=== PATIENT | male | born 1945 | race Caucasian/White ===

== ENCOUNTER → 2019-09-06 | Outpatient (CLI) | payer OTHER, BC | LOC: SJCVCIMAG 08:51 | DX: I70.1 Atherosclerosis of renal artery (principal); I25.10 Atherosclerotic heart disease of native coronary artery without angina pectoris; E11.51 Type 2 diabetes mellitus with diabetic peripheral angiopathy without gangrene; I10 Essential (primary) hypertension; I65.23 Occlusion and stenosis of bilateral carotid arteries; R60.9 Edema, unspecified; E78.00 Pure hypercholesterolemia, unspecified ==

== ENCOUNTER → 2019-09-16 | Outpatient (CLI) | payer OTHER, BC ==
[~2019-09-16] VITALS: Ht 175.3 cm; Wt 115.7 kg
[~2019-09-16] MED LIST: ASA81BEC PO; BIMATOPROST2.5 ML LT. EYE; BYSTOLIC10 MG PO; LORCET 5-325 M1 EACH PO; NITROSTAT0.4 M1; PLAVIX 75 MG TA75 MG PO; SUPER THERAVIT1 EACH PO; VICTOZA0.6 MG/0.1 SUBQ; ZETIA10 MG PO
[2019-09-16 07:25] VITALS: BP 144/76
[2019-09-16 07:27] LABS: HEMATOCRIT 38.5 % (42.0-52.0); HEMOGLOBIN 12.6 gm/dL (14.0-18.0); MCH 27.7 pg (26.0-34.0); MCHC 32.7 g/dL (28.0-37.0); MCV 84.6 fL (80.0-100.0); RBC 4.56 mil/uL (4.50-6.00); RDW 18.7 % (10.5-14.5)
[2019-09-16 07:41] LABS: CALCIUM 8.7 mg/dL (8.5-10.1); CREATININE 1.1 mg/dL (0.7-1.3); POTASSIUM 3.7 mmol/L (3.5-5.1)
--- NOTE | 2019-09-17 17:33 | CATHLAB ---
[facility] [place] [address] INVASIVE PROCEDURE REPORT Name: MIAH MARTIN Room #: REG YAW MadelinDoc.#: [id number] Admission: 09/16/19 Attend Phys: Javy Duran MD Discharge: Date of : 43 Report #: [id number] THIS REPORT FOR: cc: Víctor Marshall Steve T. DO Mancuso, Gerald M. MD [facility] ~ APPROVED REPORT Study performed: 09/16/2019 09:19:01 Patient Details Patient Status: Out-Patient Room #: The patient is a 73 year-old male Event Personnel Juevncio Hartman Galley Hand, Genny Mcrae RN RN, Jacqueline Sy RTR, Dg Orona Roberta Monitor Procedures Performed Left Heart Cath w/or w/o Coronaries [id number] [facility] Hemostasis w/ Mynx 15810 Initial Mod Sed Same Phys/QHP Gr5y 345127 67904 Mod Sed Same Phys/QHP Ea [id number] Indication Chest pain Procedure Narrative The RFG^ was infiltrated with 2% Lidocaine subcutaneous anesthesia. A 6F Brite Tip Sheath sheath was inserted into the RFA^. Coronary angiography was performed using coronary diagnostic catheters. The right coronary system was accessed and visualized with a jr4 catheter. The left coronary system was accessed and visualized with a jl5 catheter. The left ventricle was accessed and visualized with a str pig catheter. Left ventriculogram was performed in 30 degree projection. The patient tolerated the procedure well and there were no complications associated with the procedure. There was no hematoma. This was a combo case with L/C and Renal Angio. Intraoperative Conscious Sedation Sedation start time: 817 Case end Time: 914 Fentanyl 50 mcg Versed mg [facility] [address] [place] [address] INVASIVE PROCEDURE REPORT Name: MIAH MARTIN Room #: REG [facility].#: [id number] Admission: 09/16/19 Attend Phys: Javy Duran, Discharge: Date of : 43 Report #: [id number] Fluoro Time: 13.00 minutes Dose: DAP 73234.90 cGycm2 2417 mGy Contrast Type and Amount: Visipaque 39 ml Hemodynamics The aortic pressure is 161/73 mmHg with a mean of 100 mmHg. The left ventricular pressure is 187/8 mmHg with a mean of mmHg. The left ventricular end diastolic pressure is 25 mmHg. PCI Technique Lesion Percutaneous coronary intervention was performed on the Left Renal. Conclusion 1. Normal left ventricular size and systolic function EF 60% #2 left main mildly calcified distal disease giving rise to LAD and circumflex. #3 LAD eccentric 70 to 80% lesion with a well-preserved distal vessel which wraps the apex. #4 a high-grade subtotal diagonal off of this diseased area of the proximal left main complex with moderate distribution. #5 circumflex OM is codominant there is complex first OM high-grade disease with a second OM also high-grade disease and then mid circumflex after this takeoff has an eccentric 70% lesion. This is the predominant dominant vessel. #6 predominately nondominant RCA diffuse distal disease and a minimal and very small PDA not amenable to intervention or bypass. This is supplying little left ventricle. #7 normal left jugular size and systolic function EF 60% Recommendations and plan: Continue aggressive risk factor modification. Would like CT surgical consultation regarding this complex and calcified disease involving the LAD diagonal and proximal circumflex OM system. Chest pain hemodynamically stable Transfer to CV holding for further consultation. <ELECTRONICALLY SIGNED> By: Juvencio Hartman MD, FACC 09/17/19 173 31 31 Juvencio Hartman MD, FACC /INF
== END | disposition home or self-care (01) ==
LOC: CATH 06:37
PROVIDERS: Internal Medicine Cardiovascular Disease
DX: R07.9 Chest pain, unspecified (principal); I25.10 Atherosclerotic heart disease of native coronary artery without angina pectoris; I70.1 Atherosclerosis of renal artery; I73.9 Peripheral vascular disease, unspecified; I15.0 Renovascular hypertension; I70.0 Atherosclerosis of aorta; I10 Essential (primary) hypertension; E11.9 Type 2 diabetes mellitus without complications; E78.00 Pure hypercholesterolemia, unspecified; Z98.890 Other specified postprocedural states; Z90.49 Acquired absence of other specified parts of digestive tract; Z79.899 Other long term (current) drug therapy; Z72.0 Tobacco use

== ENCOUNTER → 2019-09-18 | Outpatient (CLI) | payer OTHER, BC ==
[~2019-09-18] MED LIST changes: +BYSTOLIC 5 MG5 MG PO; +COMBIGAN EYE DR10 ML OPHTHALMIC; +FERREX 150150 MG PO; +HYDROCODON-ACE1 EAC7 PO; +LUMIGAN2.5 M1 OPHTHALMIC; +ROSUVASTATIN CA20 MG PO; +STOOL SOFTENER100 MG PO; +VITAMIN D350 MC1 PO
== END ==
LOC: SJCVCIMAG 07:31
PROVIDERS: ATTEND Internal Medicine Cardiovascular Disease
DX: Z01.818 Encounter for other preprocedural examination (principal); I08.1 Rheumatic disorders of both mitral and tricuspid valves; I25.10 Atherosclerotic heart disease of native coronary artery without angina pectoris; Z95.1 Presence of aortocoronary bypass graft; Z79.899 Other long term (current) drug therapy

== ENCOUNTER → 2019-09-30 | Outpatient (CLI) | payer OTHER, BC | LOC: ULTRA 08:48 | PROVIDERS: ATTEND Surgery Vascular Surgery | DX: Z01.818 Encounter for other preprocedural examination (principal) ==

== ENCOUNTER 2019-10-03 06:39 | Inpatient (IN) | payer OTHER, BC ==
[2019-09-30 10:49] LABS: ABSOLUTE NEUTROPHILS 8.3 thou/uL (1.4-8.2); BASOPHILS 0.6 % (0.0-2.0); EOSINOPHILS 2.6 % (0.0-3.0); HEMATOCRIT 39.6 % (42.0-52.0); HEMOGLOBIN 12.9 gm/dL (14.0-18.0); LYMPHOCYTES 13.9 % (24.0-44.0); MCH 27.4 pg (26.0-34.0); MCHC 32.5 g/dL (28.0-37.0); MCV 84.4 fL (80.0-100.0); MONOCYTES 9.1 % (1.0-8.0); PLATELET COUNT 254 thou/uL (150-400); POLYS 73.8 % (36.0-66.0); RBC 4.69 mil/uL (4.50-6.00); RDW 19.3 % (10.5-14.5); WBC 11.2 thou/uL (4.0-11.0)
[2019-09-30 10:55] LABS: APTT 35.8 Seconds (24.5-32.8); INR 1.1; PROTIME 10.9 Seconds (9.3-11.4)
[2019-09-30 11:02] LABS: ALBUMIN 2.8 g/dL (3.4-5.0); CALCIUM 8.9 mg/dL (8.5-10.1); CREATININE 1.3 mg/dL (0.7-1.3); POTASSIUM 4.2 mmol/L (3.5-5.1); TOTAL BILIRUBIN 0.6 mg/dL (0.2-1.0); TOTAL PROTEIN 6.5 g/dL (6.4-8.2)
[2019-09-30 11:35] LABS: URINE BILIRUBIN NEGATIVE (Negative); URINE BLOOD TRACE (Negative); URINE CLARITY CLEAR; URINE COLOR YELLOW; URINE GLUCOSE-RANDOM* NEGATIVE (Negative); URINE KETONES NEGATIVE (Negative); URINE LEUKOCYTES-REFLEX NEGATIVE (Negative); URINE NITRITE-REFLEX NEGATIVE (Negative); URINE PROTEIN (DIPSTICK) 2+ (Negative); URINE SPECIFIC GRAVITY 1.025 (1.005-1.035); URINE UROBILINOGEN 0.2 E.U./dl (0.2-1.0)
--- NOTE | 2019-09-30 11:46 | EKG ---
[facility] [place] [place] [address] ELECTROCARDIOGRAM REPORT Name: VERONICAMIAH Room #: PRE IN M.R.#: [id number] Admission: Attend Phys: Morris Zamarripa MD Discharge: Date of : 43 Report #: [id number] THIS REPORT FOR: cc: Víctor Marshall Steve T. DO Couchonnal, Luis F. MD ~ THIS REPORT FOR: //name// [facility] Test Date: 2019-09-30 Test Time: 10:33:07 Pat Name: MIAH MARTIN Department: Room: Gender: Ludlow Machine Operator: [facility] : 1945 Requested By: Morris Zamarripa Order Number: [id number] MD: Obinna Tomlinson Measurements Intervals [place] Rate: 78 P: 28 [place]: 175 QRS: -45 QRSD: 129 T: 24 QT: 374 QTc: 426 Interpretive Statements Sinus rhythm RBBB and LAFB Compared to ECG 04/30/2003 15:02:42 Left anterior fascicular block now present Right bundle-branch block now present Electronically Signed On 09-30-2019 11:44:14 CDT by Obinna Tomlinson [email or web address] <ELECTRONICALLY SIGNED> By: Obinna Tomlinson MD 09/30/19 1144 1033 1033 Obinna Tomlinson MD /EPI
[2019-09-30 11:47] LABS: ANISOCYTOSIS 2+; OVALOCYTES FEW
[2019-09-30 11:56] LABS: BACTERIA-REFLEX 1-9 Few /HPF (None Seen); CRYSTALS None Seen /LPF (None Seen); HYALINE CASTS 0-3 Few /LPF (None Seen); SQUAMOUS 0-3 Few /LPF (0-3); URINE RBC 0-2 Rare /HPF (0-2); URINE WBC-REFLEX 0-5 Rare /HPF (0-5)
[2019-10-01 01:08] LABS: GLYCOHEMOGLOBIN (HGB A1C) 7.1 % (4.8-5.6)
[2019-10-03] VITALS (26 sets, daily range): BP systolic 81–164; BP diastolic 46–88
[~2019-10-03] VITALS: Ht 175.3 cm; Wt 115.3 kg
[~2019-10-03 06:39] MED LIST changes: -FERREX 150150 MG PO; -HYDROCODON-ACE1 EAC7 PO
[2019-10-03] MEDS ORDERED: HYDROCODON-ACE1 EAC7 PO (12:17)
[2019-10-03 13:24] LABS: HEMATOCRIT 26.1 % (42.0-52.0); MCH 27.2 pg (26.0-34.0); MCHC 32.2 g/dL (28.0-37.0); MCV 84.5 fL (80.0-100.0); RBC 3.09 mil/uL (4.50-6.00); RDW 18.5 % (10.5-14.5); WBC 17.6 thou/uL (4.0-11.0)
[2019-10-03 13:27] LABS: HEMOGLOBIN 8.4 gm/dL (14.0-18.0)
[2019-10-03 13:45] LABS: APTT 29.1 Seconds (24.5-32.8); FIBRINOGEN 399.1 mg/dL (210-360); PROTIME 13.3 Seconds (9.3-11.4)
[2019-10-03 13:47] LABS: INR 1.3
[2019-10-03 13:57] LABS: POC BE -2 mmol/L (-2.0 to +3.0); POC GLUCOSE 157 mg/dL (70-99); POC HCO3 24.1 mmol/L (22.0-26.0); POC HEMOGLOBIN 9.5 g/dL (14.0-18.0); POC POTASSIUM 4.4 mmol/L (3.5-5.1); POC SODIUM 141 mmol/L (136-145); POC pCO2 46.1 mmHg (35.0-45.0); POC pH 7.326 (7.360-7.450)
[2019-10-03 13:57] LABS: POC BE 0 mmol/L (-2.0 to +3.0); POC CA IONIZED 4.6 mg/dL (4.5-5.3); POC GLUCOSE 212 mg/dL (70-99); POC HCO3 24.1 mmol/L (22.0-26.0); POC HEMOGLOBIN 9.5 g/dL (14.0-18.0); POC POTASSIUM 4.5 mmol/L (3.5-5.1); POC SODIUM 141 mmol/L (136-145); POC pCO2 37.8 mmHg (35.0-45.0); POC pH 7.413 (7.360-7.450)
[2019-10-03 13:57] LABS: POC BE -4 mmol/L (-2.0 to +3.0); POC CA IONIZED 4.7 mg/dL (4.5-5.3); POC GLUCOSE 183 mg/dL (70-99); POC HCO3 21.7 mmol/L (22.0-26.0); POC HEMOGLOBIN 8.8 g/dL (14.0-18.0); POC POTASSIUM 4.7 mmol/L (3.5-5.1); POC SODIUM 140 mmol/L (136-145); POC pCO2 37.7 mmHg (35.0-45.0); POC pH 7.367 (7.360-7.450)
[2019-10-03 13:57] LABS: POC BE 0 mmol/L (-2.0 to +3.0); POC CA IONIZED 5.2 mg/dL (4.5-5.3); POC GLUCOSE 136 mg/dL (70-99); POC HCO3 25.2 mmol/L (22.0-26.0); POC HEMOGLOBIN 11.2 g/dL (14.0-18.0); POC SODIUM 142 mmol/L (136-145); POC pCO2 45.1 mmHg (35.0-45.0); POC pH 7.354 (7.360-7.450)
[2019-10-03 13:58] LABS: POC BE 5 mmol/L (-2.0 to +3.0); POC CA IONIZED 4.7 mg/dL (4.5-5.3); POC GLUCOSE 201 mg/dL (70-99); POC HCO3 30.1 mmol/L (22.0-26.0); POC HEMOGLOBIN 8.8 g/dL (14.0-18.0); POC POTASSIUM 4.4 mmol/L (3.5-5.1); POC SODIUM 142 mmol/L (136-145); POC pCO2 48.5 mmHg (35.0-45.0); POC pH 7.401 (7.360-7.450)
[2019-10-03 13:58] LABS: POC BE -3 mmol/L (-2.0 to +3.0); POC CA IONIZED 4.6 mg/dL (4.5-5.3); POC GLUCOSE 190 mg/dL (70-99); POC HCO3 22.5 mmol/L (22.0-26.0); POC HEMOGLOBIN 8.8 g/dL (14.0-18.0); POC POTASSIUM 4.4 mmol/L (3.5-5.1); POC SODIUM 140 mmol/L (136-145); POC pH 7.368 (7.360-7.450)
[2019-10-03 13:58] LABS: POC BE -3 mmol/L (-2.0 to +3.0); POC CA IONIZED 5.3 mg/dL (4.5-5.3); POC GLUCOSE 129 mg/dL (70-99); POC HCO3 22.5 mmol/L (22.0-26.0); POC HEMOGLOBIN 9.2 g/dL (14.0-18.0); POC POTASSIUM 3.6 mmol/L (3.5-5.1); POC SODIUM 143 mmol/L (136-145); POC pCO2 41.1 mmHg (35.0-45.0); POC pH 7.346 (7.360-7.450)
[2019-10-03 13:58] LABS: POC BE -1 mmol/L (-2.0 to +3.0); POC CA IONIZED 5.5 mg/dL (4.5-5.3); POC GLUCOSE 168 mg/dL (70-99); POC HCO3 23.6 mmol/L (22.0-26.0); POC HEMOGLOBIN 8.8 g/dL (14.0-18.0); POC POTASSIUM 3.9 mmol/L (3.5-5.1); POC SODIUM 141 mmol/L (136-145); POC pCO2 39.2 mmHg (35.0-45.0); POC pH 7.389 (7.360-7.450)
[2019-10-03 13:58] LABS: POC BE -3 mmol/L (-2.0 to +3.0); POC CA IONIZED 4.6 mg/dL (4.5-5.3); POC GLUCOSE 201 mg/dL (70-99); POC HCO3 21.7 mmol/L (22.0-26.0); POC HEMOGLOBIN 8.8 g/dL (14.0-18.0); POC POTASSIUM 4.5 mmol/L (3.5-5.1); POC SODIUM 141 mmol/L (136-145); POC pCO2 33.2 mmHg (35.0-45.0); POC pH 7.423 (7.360-7.450)
[2019-10-03 14:41] LABS: BE(vivo) -4.6 mmol/L (-2 to +3); HCO3 21.9 mmol/L (22.0-26.0); PCO2 46.6 mmHg (35.0-45.0); PO2 73.5 mmHg (80.0-100.0); sO2 93.1 % (92.0-98.0)
[2019-10-03 14:50] LABS: HEMATOCRIT 28.6 % (42.0-52.0); HEMOGLOBIN 9.3 gm/dL (14.0-18.0); MCH 27.4 pg (26.0-34.0); MCHC 32.5 g/dL (28.0-37.0); MCV 84.5 fL (80.0-100.0); RBC 3.38 mil/uL (4.50-6.00); RDW 18.8 % (10.5-14.5); WBC 18.2 thou/uL (4.0-11.0)
[2019-10-03 15:00] LABS: CALCIUM 8.3 mg/dL (8.5-10.1); CREATININE 1.4 mg/dL (0.7-1.3); MAGNESIUM 2.3 mg/dL (1.8-2.4); POTASSIUM 3.7 mmol/L (3.5-5.1)
--- NOTE | 2019-10-03 15:09 | NUR ---
PATIENT ARRIVED TO ICU BED 248 AT 1423 WITH OR STAFF AT BEDSIDE. DR BARRIGA AT BEDSIDE WITHIN 10 MINUTES. CARDENE, PROPOFOL, AND INSULIN DRIP INFUSING. PATIENT HOOKED UP TO ALL MONITORS AND PLACED ON THE VENT. CRITICAL PH 7.29 NOTED AND GIVEN TO JOHNATHAN AND NEW ORDERS RECIEVED. ALL LINES IN PLACE. NO FURTHER CONCERNS AT THIS TIME. WILL CONTINUE TO MONITOR AND CARE PER PLAN OF CARE.
[2019-10-03 15:11] LABS: APTT 29.9 Seconds (24.5-32.8); INR 1.2; PROTIME 12.2 Seconds (9.3-11.4)
--- NOTE | 2019-10-03 15:41 | NUR ---
1540, PATIENT REWARMED. VSS. WILL CONTINUE TO MONITOR
[2019-10-03 15:44] LABS: BE(vivo) -6.1 mmol/L (-2 to +3); HCO3 18.8 mmol/L (22.0-26.0); PCO2 34.6 mmHg (35.0-45.0); PO2 78.8 mmHg (80.0-100.0); pH 7.352 (7.360-7.450); sO2 95.3 % (92.0-98.0)
[2019-10-03 17:55] LABS: HCO3 17.4 mmol/L (22.0-26.0); PCO2 34.8 mmHg (35.0-45.0)
[2019-10-03 17:56] LABS: pH 7.316 (7.360-7.450)
[2019-10-03 23:23] LABS: BE(vivo) -8.6 mmol/L (-2 to +3); HCO3 17.1 mmol/L (22.0-26.0); pH 7.295 (7.360-7.450); sO2 95.4 % (92.0-98.0)
[2019-10-04] VITALS (20 sets, daily range): BP systolic 89–137; BP diastolic 52–82
[2019-10-04 00:07] LABS: BE(vivo) -9.3 mmol/L (-2 to +3); HCO3 17.5 mmol/L (22.0-26.0); PCO2 41.6 mmHg (35.0-45.0); PO2 78.1 mmHg (80.0-100.0); pH 7.242 (7.360-7.450); sO2 93.5 % (92.0-98.0)
[2019-10-04 00:52] LABS: BE(vivo) -8.9 mmol/L (-2 to +3); HCO3 17.1 mmol/L (22.0-26.0); PCO2 37.2 mmHg (35.0-45.0); PO2 67.8 mmHg (80.0-100.0); sO2 91.4 % (92.0-98.0)
--- NOTE | 2019-10-04 04:54 | NUR ---
Pt reports severe pain, that is unrelieved by prn meds, IV fentanyl has been given x 3, with minimal relief, per pt. He remains restless, (with VERY brief periods of rest noted), he moves his right hand/arm constantly so the Art line readings are skewed, the cuff pressures have been stable. Otherwise his hemodynamics are WNL, heart rate/rhythm w/o ectopy and trace pedal edema. Lungs remain coarse/diminished, he has a fair non-productive cough, Face shield at 60% sats 90-93 % Chest tubes are patent, sites are w/o drainage, dressings are intact. Marques catheter is patent, draining clear yellow urine. Pt is on amiodarone, insulin at 6 units/hr since 2300, checking BGL Q2H now. The bed is in the low/locked position, the siderails are up 4, the call light is within reach and pt is slowly progressing to POC goals.
[2019-10-04 05:31] LABS: HEMATOCRIT 30.8 % (42.0-52.0); HEMOGLOBIN 9.7 gm/dL (14.0-18.0); MCH 26.9 pg (26.0-34.0); MCHC 31.5 g/dL (28.0-37.0); MCV 85.4 fL (80.0-100.0); RBC 3.61 mil/uL (4.50-6.00); RDW 19.1 % (10.5-14.5); WBC 17.1 thou/uL (4.0-11.0)
[2019-10-04 07:08] LABS: CALCIUM 8.3 mg/dL (8.5-10.1); CREATININE 1.4 mg/dL (0.7-1.3); MAGNESIUM 2.3 mg/dL (1.8-2.4); POTASSIUM 3.8 mmol/L (3.5-5.1)
--- NOTE | 2019-10-04 08:44 | NUR ---
Nutrition: Pt S/P CABG x 5. Consult received. Will address education needs once out of ICU/closer to D/C.
--- NOTE | 2019-10-04 11:32 | NUR ---
chart review. post cabg pt up working with ot and going to sit up in recliner chair. intro to cp and dcp. he is able to make his needs know. has chest tubes. he reported " lives home alone, independent prior to hospital. has cane. drives vehicle and manage own medication. "amria g. will cont following as needed for dc needs. will cont following as needed for dc needs.
--- NOTE | 2019-10-04 12:11 | NUR ---
PT HYPERTENSIVE THIS AM AT 0700 CARDENE STARTED. FOLLOWING INITIATION OF CARDENE O2 SATS DECREASED. INCREASED O2 TO 85% FACE SHIELD. O2 SATS REMAIN LOW BUT BP IMPROVED ON CARDENE. PT DENIES SOA. DISCUSSED WITH DR BARRIGA. PT STARTED ON PO MEDS AND CARDENE WEANED OFF. O2 SATS IMPROVED FOLLOWING DISCONTINUATION OF CARDENE. KEEPING SBP BELOW [address] BARRIGA. BP STABLE FOLLOWING PO MEDS. SWAN MARIELLA DISCONTINUED ORDERED. UP TO CHAIR WITH STANDBY ASSISTANCE X2. ENCOURAGING USE OF I.S. AND COUGHING AND DEEP BREATHING. SPOKE WITH PT'S DAUGHTER AND UPDATED HER OF PT STATUS AND PT SPOKE WITH HER BY PHONE WELL. TOLERATING LIQUIDS BUT POOR APPETITE. WILL CONTINUE TO MONITOR PATIENT. PROGRESSING TOWARDS GOALS PER PLAN OF CARE.
--- NOTE | 2019-10-04 19:09 | NUR ---
PT UP TO CHAIR FOR 5 HRS TODAY. AMBULATED IN HALLWAY WITH PHYSICAL THERAPY. BACK TO BED THIS AFTERNOON AND MEDISTINAL CT DISCONTINUED. ATTEMPTING TO WEAN O2 BUT O2 SATS LESS THAN 92% WITH ANY DECREASE. ENCOURAGED USE OF I.S. AND COUGHING/DEEP BREATHING. BP ELEVATED THIS AFTERNOON. DISCUSSED WITH DR BARRIGA AND TIO GIVEN ORDERED. SPOKE WITH PT'S DAUGHTER THIS AFTERNOON AND UPDATED HER.
[2019-10-05] VITALS (7 sets, daily range): BP systolic 111–143; BP diastolic 66–75
[2019-10-05 04:58] LABS: BE(vivo) -7.1 mmol/L (-2 to +3); HCO3 17.6 mmol/L (22.0-26.0); PCO2 32.4 mmHg (35.0-45.0); PO2 80.2 mmHg (80.0-100.0); pH 7.354 (7.360-7.450); sO2 95.5 % (92.0-98.0)
[2019-10-05 05:36] LABS: HEMATOCRIT 27.1 % (42.0-52.0); HEMOGLOBIN 8.9 gm/dL (14.0-18.0); MCH 27.9 pg (26.0-34.0); MCHC 32.8 g/dL (28.0-37.0); MCV 85.2 fL (80.0-100.0); RBC 3.18 mil/uL (4.50-6.00); RDW 18.9 % (10.5-14.5); WBC 18.1 thou/uL (4.0-11.0)
[2019-10-05 06:17] LABS: CREATININE 1.6 mg/dL (0.7-1.3); POTASSIUM 4.3 mmol/L (3.5-5.1)
--- NOTE | 2019-10-05 18:08 | NUR ---
ASSESSMENT DOCUMENTED. VSS. AFEBRILE. PAIN MANAGEMENT DURING SHIFT WITH MEDICATIONS. CHEST TUBE OUTPUT 75 DURING SHIFT. LORENZA JOSHI'Nitin. PT VOIDED AFTER VIA URINAL. PT UP TO CHAIR AND WORKED WITH PT/OT. PT RESTING IN BED WITH CALL LIGHT IN REACH. WILL CONTINUE TO MONITOR.
[2019-10-06] VITALS (15 sets, daily range): BP systolic 99–137; BP diastolic 60–71
--- NOTE | 2019-10-06 03:47 | NUR ---
PAIN MANAGEMENT WAS ACHIEVED WITH ORAL MEDICATIONS WITH GOOD RESULTS. POC WITH O2 AND BREATHING TX. OPTI MAX WORKING WELL WITH SATS AT 97%. VSS, NO FEVER AND HR IN 70'S WITH NSR. PT STATES WHEN HE COUGHS HE URINATES, SO HE IS KEEPING A URINAL BETWEEN HIS LEGS. PT WILL BE UP TO THE CHAIR AT APPROX 0500. CALL LIGHT WITHIN REACH.
--- NOTE | 2019-10-06 17:39 | NUR ---
ASSESSMENT CHARTED. PT ALERT AND ORIENTED. VSS. REPORT HAVING STERNUM DISCOMFORT BUT DENIED THE NEED FOR PAIN MED. SR ON TELE. HAD [address] GARCES AWARE. NO NEW ORDERS. INTRODUCER REMOVED. CHEST TUBE AND PACER WIRES REMOVED BY DR. BARRIGA. PT UP IN THE CHAIR MOST OF THIS SHIFT. PARTICIPATED IN PHYSICAL THERAPY. CHECKED FREQUENTLY AND NEEDS MET. CALL LIGHT WITHIN REACH. NO CONCERNS AT THIS TIME. WILL CONTINUE TO MONITOR.
[2019-10-07] VITALS (30 sets, daily range): BP systolic 92–139; BP diastolic 49–68
[2019-10-07 05:42] LABS: HEMATOCRIT 25.8 % (42.0-52.0); HEMOGLOBIN 8.5 gm/dL (14.0-18.0); MCH 27.9 pg (26.0-34.0); MCHC 32.9 g/dL (28.0-37.0); MCV 84.7 fL (80.0-100.0); RBC 3.05 mil/uL (4.50-6.00); RDW 19.2 % (10.5-14.5); WBC 10.3 thou/uL (4.0-11.0)
--- NOTE | 2019-10-07 06:00 | NUR ---
AWAKE AND ALERT. VSS SR NO TUCKER. LUNGS DIMINISHED BILAT. CHEST AND LEG DSG DRY AND INTACT. FABI DRAIN INTACT. VOIDED 1200 CC TONIGHT. SINUS RHYTHM. CONT TO BE VERY DYSPNIC WITH ANY EXERTION. O2 SAT 96 % ON 6 L HF NC. PROGRESSING TOWARD GOALS. WILL CONT TO MONITOR.
[2019-10-07 06:16] LABS: CALCIUM 8.6 mg/dL (8.5-10.1); CREATININE 1.3 mg/dL (0.7-1.3)
--- NOTE | 2019-10-07 07:00 | NUR ---
UP TO CARDIAC CHAIR. LORNE WELL
--- NOTE | 2019-10-07 08:10 | EKG ---
[facility] [place] [address] ELECTROCARDIOGRAM REPORT Name: MIAH MARTIN Room #: 248-P ADM IN M.R.#: [id number] Admission: 10/03/19 Attend Phys: Morris Zamarripa MD Discharge: Date of : 43 Report #: [id number] THIS REPORT FOR: cc: Víctor Marshall Steve T. DO Lundgren, Craig H. MD [facility] ~ THIS REPORT FOR: //name// [facility] Test Date: 2019-10-03 Test Time: 18:06:42 Pat Name: MIAH MARTIN Department: Room: 248 Gender: M Patient Monitor: Kings BARTON : 1945 Requested By: Nikos Castle Order Number: [id number] MD: Ariel Haji Measurements Intervals [place] Rate: 81 P: 39 SD: 157 QRS: -10 QRSD: 125 T: 1 QT: 400 QTc: 465 Interpretive Statements Sinus rhythm Right bundle branch block Compared to ECG 09/30/2019 10:33:07 [place] has shifted rightward Electronically Signed On 10-07-2019 8:08:48 CDT by Ariel Haji [email or web address] <ELECTRONICALLY SIGNED> By: Ariel Haji MD, [facility] 10/07/19 0808 180 180 Ariel Haji MD, [facility] /EPI
--- NOTE | 2019-10-07 08:17 | EKG ---
[facility] [place] [address] ELECTROCARDIOGRAM REPORT Name: MIAH MARTIN Room #: 248-P ADM IN M.R.#: [id number] Admission: 10/03/19 Attend Phys: Morris Zamarripa MD Discharge: Date of : 43 Report #: [id number] THIS REPORT FOR: cc: Víctor Marshall Steve T. DO Lundgren, Craig H. MD [facility] ~ THIS REPORT FOR: //name// [facility] Test Date: 2019-10-04 Test Time: 07:47:50 Pat Name: MIAH MARTIN Department: Room: 248 P Gender: M Sterile Processing Technologist: Doc SAEZ : 1945 Requested By: Nikos Castle Order Number: [id number] MD: Ariel Haji Measurements Intervals [place] Rate: 86 P: 39 [place]: 158 QRS: -19 QRSD: 122 T: 2 QT: 381 QTc: 456 Interpretive Statements Sinus rhythm Right bundle branch block Inferior myocardial infarction, age indeterminate Compared to ECG 09/30/2019 10:33:07 No significant change was found Electronically Signed On 10-07-2019 8:15:43 CDT by Ariel Haji [email or web address] <ELECTRONICALLY SIGNED> By: Ariel Haji MD, [facility] 10/07/1915 Ariel Haji MD, [facility] /EPI
--- NOTE | 2019-10-07 09:10 | EKG ---
[facility] [place] [address] ELECTROCARDIOGRAM REPORT Name: MIAH MARTIN Room #: 248-P ADM IN M.R.#: [id number] Admission: 10/03/19 Attend Phys: Morris Zamarripa MD Discharge: Date of : 43 Report #: [id number] THIS REPORT FOR: cc: Víctor Marshall Steve T. DO Lundgren, Craig H. MD [facility] ~ THIS REPORT FOR: //name// [facility] Test Date: 2019-10-07 Test Time: 07:53:11 Pat Name: MIAH MARTIN Department: Room: 248 P Gender: M Energy Risk Management Analyst: ZHANG : 1945 Requested By: Morris Zamarripa Order Number: [id number] MD: Ariel Haji Measurements Intervals [place] Rate: 66 P: 29 [place]: 151 QRS: -19 QRSD: 126 T: 41 QT: 441 QTc: 463 Interpretive Statements Sinus rhythm Right ventricular conduction delay Borderline repolarization abnormality Compared to ECG 09/30/2019 10:33:07 No significant change was found Electronically Signed On 10-07-2019 9:08:02 CDT by Ariel Haji [email or web address] <ELECTRONICALLY SIGNED> By: Ariel Haji MD, [facility] 10/07/19 0908 0753 0753 Ariel Haji MD, [facility] /EPI
--- NOTE | 2019-10-07 15:59 | NUR ---
SW reviewed chart and spoke with nursing. Pt is s/p CABG x 5. Remains in ICU. Pt to transfer to CCU when a bed is available. Pt remains on 6L of O2. PT/OT is working with pt to assist with recommendation for discharge needs. LESA spoke with pt via phone to discuss discharge plan. Pt states that his dtr and niece will be staying with him upon discharge. Pt does not think he will need HH services. Pt will need rest/exercise oximetry if pt needs home O2. Pt's PCP is Dr. Víctor Marshall. SW is following to assist as needed with discharge planning.
--- NOTE | 2019-10-07 18:22 | NUR ---
PT IS A&OX3, PT IS ON O2 6L/MIN/NC TO KEEP O2SAT 94-98%, PT'S VS ARE STABLE, PT HAS WORKED WITH PT/OT, PT GETS UP TO CHAIR WITH ASSIST, PT , STERNAL SURGICAL DRESSING IS DRY AND INTACT, FABI DRAIN INTACT, PT DENIES PAIN AND N/V , PT WILL TRANSFER TO CCU UNIT WHEN BED IS AVALIBLE .
[2019-10-08] VITALS (12 sets, daily range): BP systolic 90–136; BP diastolic 45–75
--- NOTE | 2019-10-08 04:34 | NUR ---
PATIENT IS PROGRESSING SLOWLY IN HIS CARE PLAN. VITAL SIGNS STABLE WITH PATIENT HAVING NO COMPLAINTS OF NAUSEA. PATIENT DID COMPLAIN OF STERNAL PAIN WHEN COUGHING AND WAS TREATED APPROPRIATELY THROUGH PAIN AND COUGH MEDICATION, AND REPOSITIONING. FULLY ORIENTED, PATIENT IS ABLE TO CALL APPROPRIATELY FOR NEEDS AND PARTICIPATE FULLY IN CARE. BREATHING STABLE ON SIX LITERS NASAL CANNULA EVIDENCED BY ASSESSMENT AND CONTINUOUS SATURATION MONITORING. PATIENT UP WITH ASSISTANCE INCIDENT FREE. BOWEL MOVEMENT DURING SHIFT WITH PATIENT EXHIBITING ADEQUATE URINARY OUTPUT. CONTINUE PLAN OF CARE.
--- NOTE | 2019-10-08 11:43 | NUR ---
0700-ASSUMED CARE OF PT.--VW 1100-PT AMBULATING W P.T. PT WALKED FROM ICU TO [facility], HIS NEW ROOM. PT DID EXCEEDINGLY WELL.UP IN CHAIR ONCE IN ROOM.ENC PT TO STAY UP FOR LUNCH, THEN NAP.SHOWER LATER TODAY W ASSIST OF O.T. PT IN A BETTER FRAME OF MIND.ORIENTED TO ROOM.CHAIR ALARM ON,CALL AVENDANO BY PT'S SIDE.CARE TURNED OVER TO EUGENIOCCU RN.--VW
--- NOTE | 2019-10-08 15:25 | NUR ---
LESA reviewed chart. Pt is s/p CABG x 5. Pt is progressing towards goals for discharge. Pt transferred from ICU to CCU earlier today. Pt continues to require continuous O2. Will need rest/exercise oximetry to determine if pt qualifies for home O2. LESA is following to assist as needed with discharge planning.
--- NOTE | 2019-10-08 17:18 | NUR ---
PT TRANSFERRED FROM ICU THIS SHIFT. PT ALERT AND ORIENTED. UP X1 TOLERATING WELL. PT C/O PAIN IN LEG- MANAGED WITH PO TYLENOL. GLUCOSE CHECKS ORDERS UPDATED PER ORDERS. STERNAL DRESSING CHANGED. PT BATHED WITH OT THIS SHIFT, AND WORKED WITH PHYS THERAPY TOLERATING WELL. DENIES SOB/CP. ENCOURAGING PT TO USE INCENTIVE SPRIOMETER. PT DENIES NEEDS AT THIS TIME. WILL CONT TO MONITOR AND FOLLOW POC. WILL PASS ON REPORT TO APRIL LOERA.
[2019-10-09 04:57] VITALS: BP 119/53
[2019-10-09 06:00] LABS: CALCIUM 8.5 mg/dL (8.5-10.1); CREATININE 1.4 mg/dL (0.7-1.3); POTASSIUM 3.7 mmol/L (3.5-5.1)
--- NOTE | 2019-10-09 06:43 | NUR ---
SLEPT PART OF NOC IN BED AND REST IN CHAIR. UP WITH 1-2 ASSIST NEEDED. DENIES PRESENT COMPLAINTS OF PAIN. WORKING ON GOALS AND PLAN OF CARE FOR NOC. FABI DRESSING REMAINS INTACT. PROGRESSING SLOWLY TOWARDS DISCHARGE GOALS. CONTINUE TO ASSES.
[2019-10-09 08:00] VITALS: BP 114/41
--- NOTE | 2019-10-09 09:54 | NUR ---
AAOX4. CALM, COOPERATIVE. TO BR FOR HYGIENE WITH TRE SARMIENTO. DESATS INTO HIGH 80'S WITH ACTIVITY. ATTEMPTING TO WEAN OFF O2 TO PREPARE FOR DC TOMORROW 10/09. SR/ST PER TELE. DENIES CP. PT TO SEE; INCREASE ACTIVITY TODAY TOLERATED. JUST DROPPED TO 84% AMBULATING IN [place] WITH PT, RECOVERED INTO LOW 90'S WITH DEEP BREATHIING. WILL CONTINUE TO FOLLOW CLOSELY.
--- NOTE | 2019-10-09 11:55 | NUR ---
Nutrition: Assessed for early LOS, plus seen for diet education needs regarding recent CABG. S/p CABG x5 earlier in stay, now appropriate for heart healthy education this date. Anticipated discharge planned for tomorrow, 10/09 per notes. Pt able to sit up in bed at edge of bed during education. He was open to education, though a little short of breath. Spent 10-15 mins in diet ed with pt and provided CABG Nutrition Therapy education handout via Nutrition Care Manual. See RD education note for further details. Pt otherwise eating fair to great considering recent extensive surgery. Eating 60-100% of most meals with nearly 75% meal average the last few days. Daily BM today. Pt voiced no further nutrition questions/concerns. Keep as low nutrition risk.
[2019-10-09 12:00] VITALS: BP 127/59
[2019-10-09 16:00] VITALS: BP 115/54
--- NOTE | 2019-10-09 17:25 | NUR ---
PT CARE ASSUMED APPROX 1600. PT ALERT AND ORIENTED X4. DENIES PAIN AND SOA. VSS. UP WITH MIN ASSIST AND WALKER. PT STEADY. DENIES QUESTIONS OR CONCERNS REGARDING POC. FABI DSG C/D/I. PT TOLERATING POC. NO DISTRESS NOTED.
[2019-10-09 19:00] VITALS: BP 117/64
[2019-10-10 03:45] VITALS: BP 157/76
--- NOTE | 2019-10-10 04:34 | NUR ---
ASSESSMENT DOCUMENTED.PT BEEN RESTING IN NO ACUTE DISTRESS.A/OX4.VSS.ON NOCTURNAL STUDIES THROUGH THE NOC,MAINTANING SPO2 ABOVE 90%.PT SPENT PART OF THE NOC SLEEPING IN THE RECYCLINER,THEN TO BED.DENIES PAIN.FABI DRESSING CDI.POSSIBLE DISCHARGE TODAY.WILL CONT TO MONITOR PER POC.
[2019-10-10 08:00] VITALS: BP 135/73
[2019-10-10] MEDS ORDERED: FERREX 150150 MG PO (08:48)
--- NOTE | 2019-10-10 11:06 | NUR ---
RECEIVED PT'S CARE AROUND 0735; PT. ON BED; AOX4; DURING AM ASSESSMENT NO C/O PAIN; AM MEDICATION GIVEN; ST. WANTS TO GO HOME TODAY; 10/10/2019; EDUCATED ABOUT D/C PROCESS; ST. UNDERSTANDING; ABLE TO AMBULATE WITH CARDIAC REHAB NURSE; RT IN ORDER TO PERFORM 02 SAT DURING AMBULATION; O2 SAT ABOVE 97% DURING AMBULATION; SOB WITH EXERTION; DAUGHTER UPDATE ABOUT PT'S POC; REQUESTED TO TALK WITH JOHNATHAN; JOHNATHAN NOTIFIED; ASSESSMENT CHARGED; FOLLOWED POC; PER CARDIAC NURSE REFERRAL SENT TO [facility]; DAUGHTER NOTIFIED; WORKING ON D/C ORDERS;
[2019-10-10 11:20] VITALS: BP 138/73
--- NOTE | 2019-10-10 11:42 | NUR ---
Pt dcing home today. Noc desat study and ra/ex sats were good. No o2 needed. Outpt followup anticipated.
--- NOTE | 2019-10-13 09:00 | O ---
[facility] [place] [address] OPERATIVE REPORT Name: MIAH MARTIN Room #: 211-P [facility] IN M.R.#: [id number] Admission: 10/03/19 Attend Phys: Morris Zamarripa MD Discharge: 10/10/19 Date of : 43 Report #: [id number] THIS REPORT FOR: cc: Víctor Marshall,Morris Anne MD ~ CC: Morris Marshall DATE OF SERVICE: 10/03/2019 PREOPERATIVE DIAGNOSIS: Coronary artery disease. POSTOPERATIVE DIAGNOSIS: Coronary artery disease. OPERATION: Coronary artery bypass x 5 including left internal mammary artery to left anterior descending artery, saphenous vein to diagonal and marginal arteries, saphenous vein to acute marginal branch of the right coronary and the posterolateral branch that emanates as a distal circumflex branch and endoscopic harvest, left greater saphenous vein. SURGEON: Morris Zamarripa MD ANIMAL TAXONOMIST: PARAMJIT Jeong. ANESTHESIA: General. INDICATIONS: The patient is a 73-year-old with coronary artery disease, referred by Dr. Hartman. The patient presents with shortness of breath on exertion. Catheterization demonstrates left main and 3-vessel coronary disease. Left ventricular function is satisfactory. FINDINGS AND TECHNIQUE: After general anesthesia was established, saphenous vein was harvested and prepared for use as a conduit. Exposure was obtained through median sternotomy. Left internal mammary artery was harvested. Pericardial well was made. Cannulation sutures were placed. Heparin was given. Aorta was cannulated. Right atrium was cannulated. Cardioplegia needle was positioned in the aortic root. Retrograde cardioplegic catheter was placed in coronary sinus. Cardiopulmonary bypass was established. Aorta was cross clamped. Antegrade and retrograde cardioplegia were given. Ice was poured in the pericardial well. The heart was stopped. During electromechanical arrest, the distal anastomoses were performed and end-to-side anastomosis was made between vein and the distal branch of the circumflex, which ____ posterolateral. Cold cardioplegia was given. The same segment of vein was sewn in end-to-side fashion to the acute marginal branch, [facility] [address] [place] [address] OPERATIVE REPORT Name: VERONICAMIAH Room #: 211-P DIS IN M.R.#: [id number] Admission: 10/03/19 Attend Phys: Morris Zamarripa MD Discharge: 10/10/19 Date of : 43 Report #: [id number] which seemed to extend distally and to the distal septum as a posterior descending. Cold cardioplegia was given. A separate segment of vein was sewn in end-to-side fashion to the largest proximal marginal. Cold cardioplegia was given. The same segment of vein was sewn in end-to-side fashion to the large diagonal artery. Cold cardioplegia was given. Left internal mammary artery was sewn in end-to-side fashion to the left anterior descending artery. Patency of this vessel was checked with the temperature technique and the Doppler. Cold cardioplegia was given. Two proximal anastomoses were performed. When these were complete, warm retrograde cardioplegia was given followed by warm continuous blood to the coronary sinus. When this infusion was complete, the crossclamp was removed, de-airing maneuvers were performed. The anastomoses were inspected and found to be satisfactory. As the patient warmed, nice cardiac activity resumed, chest tubes and pacing wires were placed. A marker was placed around the proximal anastomoses. When the patient was warm, he was weaned from cardiopulmonary bypass. Venous cannula was removed. Protamine was given, the aortic cannula was removed. Flows were measured in the bypass grafts. When hemostasis was satisfactory, chest was irrigated with antibiotic solution and closed in the usual fashion. The patient was taken to the Intensive Care Unit in good condition having tolerated the procedure well. All counts reported as correct. <ELECTRONICALLY SIGNED> By: Morris Zamarripa MD 10/13/19 0900 1527 1544 Morris Zamarripa MD /nt
--- NOTE | 2019-10-15 15:15 | NUR ---
rec call from dtr who lives in [place]. Her father dc on 10/10/19 last week. Dtr reports she is staying with patient but planning to leave this weekend to return home. She reports her father denied need for home health at dc but she feels he needs at this time. Discussed contacting primary care phys however dtr feels more efficient and quicker response from [facility]. Sp with [facility] who reports they can accept patient, they service area but need orders. Sp with Yovany from [facility] who will f/u with HH with orders. Sp with dtr who is agreeable to [facility] care. Verified address. PCP Dr Víctor Medrano. Alerted to dtr to call casemgt if do not rec phone call from care.
== END 2019-10-10 11:51 | disposition home or self-care (01) | DRG 235 ==
LOC: TBA 06:39 → ICU 06:39 → PRE 08:50 → OR 10:20 → EDSTATUS 11:44 → PRE 11:47 → ICU 14:56 → 2N 10-08 11:10
PROVIDERS: Physician Assistant; ADMIT Surgery Vascular Surgery; ATTEND Surgery Vascular Surgery
DX: I25.10 Atherosclerotic heart disease of native coronary artery without angina pectoris (principal); R65.11 Systemic inflammatory response syndrome (SIRS) of non-infectious origin with acute organ dysfunction; N17.0 Acute kidney failure with tubular necrosis; D62 Acute posthemorrhagic anemia; J98.11 Atelectasis; I73.9 Peripheral vascular disease, unspecified; I10 Essential (primary) hypertension; E78.5 Hyperlipidemia, unspecified; M19.90 Unspecified osteoarthritis, unspecified site; I65.23 Occlusion and stenosis of bilateral carotid arteries; I70.1 Atherosclerosis of renal artery; E87.70 Fluid overload, unspecified; R06.89 Other abnormalities of breathing; Z20.828 Contact with and (suspected) exposure to other viral communicable diseases; Z88.1 Allergy status to other antibiotic agents; Z90.49 Acquired absence of other specified parts of digestive tract; Z82.49 Family history of ischemic heart disease and other diseases of the circulatory system; Z71.6 Tobacco abuse counseling; Z79.82 Long term (current) use of aspirin; Z79.899 Other long term (current) drug therapy
CPT/HCPCS: 10078; 10081; 10203; 10204; 47000; 47001; 47002; 47297; 48888; 50010; 50249; 50409; 50456; 50498; 50668; 51301; 52131; 52259; 52287; 52314; 53327; 53358; 54118; 56524; 56525; 56526; 56527; 56528; 56531; 56534; 56668; 56719; 56760; 56898; 57093; 57116; 57167; 62110; 62950; 65003; 65020; 65047; 65090; 65120; 65135; 83006

== ENCOUNTER → 2020-04-08 | Outpatient (CLI) | payer OTHER, BC ==
[~2020-04-08] MED LIST changes: +FERREX 150150 MG PO; +HYDROCODON-ACE1 EAC7 PO
== END ==
LOC: SJCVCIMAG 09:16
PROVIDERS: ATTEND Internal Medicine Cardiovascular Disease
DX: I25.810 Atherosclerosis of coronary artery bypass graft(s) without angina pectoris (principal); E11.9 Type 2 diabetes mellitus without complications; I10 Essential (primary) hypertension; E78.00 Pure hypercholesterolemia, unspecified; I70.1 Atherosclerosis of renal artery; I73.9 Peripheral vascular disease, unspecified; I65.23 Occlusion and stenosis of bilateral carotid arteries; M19.90 Unspecified osteoarthritis, unspecified site; Z79.82 Long term (current) use of aspirin; Z79.899 Other long term (current) drug therapy; Z82.49 Family history of ischemic heart disease and other diseases of the circulatory system; Z87.891 Personal history of nicotine dependence; Z95.1 Presence of aortocoronary bypass graft

== ENCOUNTER → 2021-04-14 | Outpatient (CLI) | payer OTHER, BC | LOC: SJCVC 14:28 | PROVIDERS: ATTEND Internal Medicine Cardiovascular Disease | DX: I25.810 Atherosclerosis of coronary artery bypass graft(s) without angina pectoris (principal); I10 Essential (primary) hypertension; E78.00 Pure hypercholesterolemia, unspecified; I70.1 Atherosclerosis of renal artery; I65.23 Occlusion and stenosis of bilateral carotid arteries; G47.30 Sleep apnea, unspecified; E11.9 Type 2 diabetes mellitus without complications; Z95.1 Presence of aortocoronary bypass graft; Z87.891 Personal history of nicotine dependence; Z72.89 Other problems related to lifestyle; Z79.82 Long term (current) use of aspirin; Z79.899 Other long term (current) drug therapy; Z79.84 Long term (current) use of oral hypoglycemic drugs; Z88.2 Allergy status to sulfonamides; Z88.1 Allergy status to other antibiotic agents; Z82.49 Family history of ischemic heart disease and other diseases of the circulatory system ==